=== PATIENT | male | born 2000 | race African-American/Black ===

== ENCOUNTER 2023-03-29 11:30 | Emergency (ER) | payer SELFPAY ==
[2023-03-29] MEDS ORDERED: Triple Antibiotic Oint 1 GM Packet ONE ×2 (13:13→13:16)
== END 2023-03-29 13:28 | disposition home or self-care (01) ==
LOC: CSHERS 11:30
DX: H61.122 Hematoma of pinna, left ear (principal); J45.909 Unspecified asthma, uncomplicated
CPT/HCPCS: 69000

== ENCOUNTER 2023-04-01 12:06 | Emergency (ER) | payer SELFPAY ==
[2023-04-01] MEDS ORDERED: Lidocaine 1% (PF) 30 ML VIAL ONE (14:08)
== END 2023-04-01 14:56 | disposition home or self-care (01) ==
LOC: CSHERS 12:06
DX: H61.122 Hematoma of pinna, left ear (principal); J45.909 Unspecified asthma, uncomplicated
CPT/HCPCS: 99282; J2001